=== PATIENT | female | born 1985 | race African-American/Black ===

== ENCOUNTER 2017-07-20 12:46 | Emergency (ER) | payer MEDICAID ==
[~2017-07-20] VITALS: Ht 162.6 cm; Wt 90.5 kg
[~2017-07-20 12:46] MED LIST: MELACAP PO
[2017-07-20 12:49] VITALS: BP 150/85; PULSE 98; RESP 18; TEMP 98.4; O2SAT 100
[2017-07-20] MEDS ORDERED: BACT800T5 PO (13:10)
--- NOTE | 2017-07-20 13:10 | PD ---
HPI Chief Complaint: Lump, Cyst, Hernia Time Seen by Provider: 12:59 Travel History International Travel<30 days: No Contact w/Intl Traveler<30days: No Traveled to known affect area: No History of Present Illness HPI Patient comes in complaining of a cyst over her left shoulder has been there for approximately a year. It was not painful and he has not been of concern until recently when she started to notice some discoloration to the skin area over the last 3 days which made her come into the emergency department to get evaluated. No known drug allergy Patient denies any past medical or surgical history. PFSH Past Medical History Blood Disorders: No Cardiovascular Problems: No Diminished Hearing: No Endocrine: No Gastrointestinal Disorders: No Genitourinary: No Musculoskeletal: No Neurologic: No Psychiatric: No Respiratory: No ?: Not : 4 Para: 3 Past Surgical History Section: Yes (X1) Hysterectomy: Yes Other Surgery: No Social History Alcohol Use: No Tobacco Use: No Substance Use: No Allergies-Medications (Allergen,Severity, Reaction): Coded Allergies: No Known Allergies (Verified , 05/03/16) Reported Meds & Prescriptions Reported Meds & Active Scripts Active Reported Sleep (Melatonin-Theanine) 1 Cap 1 Tab PO HS Review of Systems Except as stated in HPI: all other systems reviewed are Neg General / Constitutional: No: Fever Eyes: No: Visual changes HENT: No: Headaches Cardiovascular: No: Chest Pain or Discomfort Respiratory: No: Shortness of Breath Gastrointestinal: No: Abdominal Pain Genitourinary: No: Dysuria Musculoskeletal: No: Pain Skin: Positive Lumps Neurologic: No: Weakness Psychiatric: No: Depression Endocrine: No: Polydipsia Hematologic/Lymphatic: No: Easy Bruising Physical Exam Narrative GENERAL: SKIN: Warm and dry. 1.5cm circular induration without drainage, without streaking, without fluctuance. HEAD: Atraumatic. Normocephalic. EYES: Pupils equal and round. No scleral icterus. No injection or drainage. ENT: No nasal bleeding or discharge. Mucous membranes pink and moist. NECK: Trachea midline. No JVD. CARDIOVASCULAR: Regular rate and rhythm. RESPIRATORY: No accessory muscle use. Clear to auscultation. Breath sounds equal bilaterally. GASTROINTESTINAL: Abdomen soft, non-tender, nondistended. MUSCULOSKELETAL: Extremities without clubbing, cyanosis, or edema. No obvious deformities. NEUROLOGICAL: Awake and alert. No obvious cranial nerve deficits. Motor grossly within normal limits. Five out of 5 muscle strength in the arms and legs. Normal speech. PSYCHIATRIC: Appropriate mood and affect; insight and judgment normal. Data Data Last Documented VS Vital Signs Date Time Temp Pulse Resp B/P (MAP) Pulse Ox O2 Delivery O2 Flow Rate FiO2 07/20/17 12:49 98.4 98 18 150/85 (106) 100 MDM Medical Decision Making Medical Screen Exam Complete: Yes Emergency Medical Condition: Yes Medical Record Reviewed: Yes Differential Diagnosis Cellulitis versus abscess versus sebaceous cyst versus comedo Narrative Course Clinically findings are consistent more with a sebaceous cyst rather than any type of cellulitis or abscess. Diagnosis Primary Impression: Sebaceous cyst Referrals: [facility] Patient Instructions: Cyst (ED), General Instructions Scripts Sulfamethoxazole-Trimethoprim (Bactrim DS) 800-160 Mg Tab 1 TAB PO BID for Infection, #6 TAB 0 Refills Prov: Leland Noble MD 07/20/17 Disposition: 01 DISCHARGE HOME Condition: Stable Leland Noble MD Jul 20, 2017 13:10
== END 2017-07-20 13:59 | disposition home or self-care (01) ==
LOC: NEPD 12:46
DX: L72.3 Sebaceous cyst (principal)
CPT/HCPCS: 99283